=== PATIENT | female | born 1945 | race Caucasian/White ===

== ENCOUNTER 2022-12-26 11:34 | Outpatient (REF) | payer MEDICARE, OTHER, SELFPAY | END 2022-12-26 11:35 | disposition home or self-care (01) | LOC: LBN 11:34 | PROVIDERS: Visit Provider Nurse Practitioner Family | DX: N39.0 Urinary tract infection, site not specified (principal) | CPT/HCPCS: 87077; 87086; 87186 ==

== ENCOUNTER 2023-11-20 18:26 | Emergency (ER) | payer MEDICARE, OTHER, SELFPAY ==
[2023-11-20] VITALS (28 sets, daily range): BP systolic 133–178; BP diastolic 50–73; PULSE 52–78; RESP 11–21; O2SAT 95–99
--- NOTE | 2023-11-20 18:15 | RT.EKG_ITS ---
APPROVED REPORT Exam: Resting ECG Reason for Exam: chest pain Patient Location: E HR:75 bpm ECG Measurements Heart Rate 75 AXIS NH 158 P 8 QRSd 95 QRS 51 QT 410 T 6 QTc 457 Conclusion Sinus rhythm [address] changes
[2023-11-20 19:11] LABS: Abs Immature Grans 0.01 10^3/uL (0.0-0.06); Absolute Basophil Count 0.05 10^3/uL (0.0-0.2); Absolute Eosinophil Count 0.15 10^3/uL (0.0-0.7); Absolute Lymphocyte Count 2.96 10^3/uL (1.2-3.4); Absolute Monocyte Count 0.75 10^3/uL (0.1-0.8); Absolute Neutrophil Count 5.06 10^3/uL (1.2-6.7); Basophils % 0.6 %; Eosinophils % 1.7 %; HCT 46.8 % (36.0-46.0); HGB 15.4 g/dL (11.2-15.7); Immature Grans % 0.1 %; MCH 29.6 pg (27.0-33.0); MCHC 32.9 % (32.0-36.0); MCV 90 fL (80-95); MPV 9.9 fL (8.0-11.0); Monocytes % 8.4 %; Neutrophils % 56.2 %; Platelet Count 271 10^3/uL (130-400); RBC 5.21 10^6/uL (3.93-5.22); RDW 12.9 % (11.7-14.6); RDW-SD 42.5 fL; WBC 8.98 10^3/uL (4.4-10.8)
[2023-11-20] MEDS: Aspirin 81 MG CHEW 324 MG CH (19:12)
--- NOTE | 2023-11-20 19:45 | DI.RAD_ITS ---
Exam(s) XR PORTABLE CHEST AP EXAM: XR PORTABLE CHEST AP CLINICAL HISTORY: cp TECHNIQUE: 2D digital imaging was performed of the chest. One image was obtained. An AP view was ob tained. COMPARISON: No exams were available for comparison FINDINGS: MEDIASTINUM: Normal. HEART: Normal. PULMONARY VASCULATURE: Normal. LUNGS: No focal consolidating infiltrates. The lungs are hyperinflated suggesting underlying COPD. PLEURAL SPACE: No pleural effusion or pneumothorax. BONE:Within normal limits for the patient's age. There is a mild right convex lower thoracic upper shanice mbar scoliosis. OTHER FINDINGS:Normal. IMPRESSION: No acute pulmonary findings. DATA REPOSITORY: RADIATION DOSE DELIVERED:
[2023-11-20 20:14] LABS: ALT 30 U/L (14-59); AST 30 U/L (15-37); Alkaline Phosphatase 100 U/L (46-116); Anion Gap 7.3 mmol/L (3-11); BUN 16 mg/dL (7-18); Bilirubin, Total 0.5 mg/dL (0.2-1.0); CO2 28.7 mmol/L (21.0-32.0); CREATININE 0.7 mg/dL (0.55-1.02); Chloride 104 mmol/L (98-107); Estimated GFR 89.58 (mL/min/1.73m2); Glucose 94 mg/dL (74-106); Magnesium 2.5 mg/dL (1.8-2.4); NT-proBNP 345 pg/mL (<300); Potassium 4.8 mmol/L (3.5-5.1); Sodium 140 mmol/L (136-145); Total Protein 7.9 g/dL (6.4-8.2); Troponin I < 50 ng/L (< or =60)
--- NOTE | 2023-11-20 20:16 | DI.VRAD_ITS ---
PROCEDURE INFORMATION: Exam: XR Chest Exam date and time: 11/20/2023 7:42 PM Age: 77 years old Clinical indication: Other: Chest pain TECHNIQUE: Imaging protocol: Radiologic exam of the chest. Views: 1 view. COMPARISON: No relevant prior studies available. FINDINGS: Lungs: Lungs hyperinflated suggestive of COPD. No consolidation. Pleural spaces: Unremarkable. No pleural effusion. No pneumothorax. Heart/Mediastinum: Unremarkable. No cardiomegaly. Bones/joints: Unremarkable. IMPRESSION: No acute abnormality. Dictated and Authenticated by: Andrew Iniguez MD. Ordering:[facility] Juan Mandujano MD
[2023-11-20 22:08] LABS: Troponin I < 50 ng/L (< or =60)
--- NOTE | 2023-11-20 22:27 | ED.GENADUL_ITS ---
Discharge Plan Disposition Patient Disposition: Home Condition: Stable Discharge Details Clinical Impression: Chest pain Primary Care Provider: Unknown,Unknown ED Provider: Shyann Martinez Discharge Instructions Instructions: Chest Pain (ED) Additional Instructions: lab work is stable unlikely heart attack causing pain please follow up with PCP for re-evaluation or return to the ED with persistent chest pain HPI General Date/Time Provider Initiated Documentation: 11/20/23 18:42 . Limitations to Documentation: no limitations . Information obtained by: patient and family . HPI Narrative: 77-year-old female with out significant past medical history presents for evaluation of left-sided chest pain. She reports the onset of symptoms while driving in a car. They have been driving for approximately 5 hours. She has no associated shortness of breath. She reports left-sided sharp nonradiating pain. She reports that she has had about 6 episodes of this pain. No exacerbating or relieving factors. Pain is brief when she does feel it and resolved spont aneously. She has never had symptoms like this before. General Stated Complaint: Chest Pain MECHE: 3 Exam Narrative Exam Narrative: Review of Systems: All systems reviewed & are unremarkable except as noted in HPI and below Well-developed, no acute distress NCAT PERRL, normal conjunctiva RRR, no murmur, no chest wall tenderness Blood pressure slightly elevated Unlabored respiratory effort, clear bilaterally Nondistended abdomen, nontender Extremities w/o deformity, no cyanosis, no edema No rashes or lesions. no focal neurologic deficits Appropriate mood and affect Course Vital Signs Vital signs: Vital Signs Pulse 78 11/20/23 18:29 Respiratory Rate 18 11/20/23 18:29 Blood Pressure 178/73 H 11/20/23 18:29 Pulse Oximetry 97 11/20/23 18:29 Pulse 60 11/20/23 20:40 Pulse 63 11/20/23 20:40 Respiratory Rate 18 11/20/23 20:40 Respiratory Effort Normal 11/20/23 18:51 Respiratory Depth Normal 11/20/23 18:50 Respiratory Pattern Normal 11/20/23 18:50 Blood Pressure 166/66 H 11/20/23 20:40 Blood Pressure Mean 104 11/20/23 20:40 Blood Pressure Position Sitting 11/20/23 18:29 Pulse Oximetry 98 11/20/23 20:40 Oxygen Delivery Method Room Air 11/20/23 18:29 Oxygen Flow Rate 0 11/20/23 18:29 Lab/Test Results Lab/Test Results: Laboratory Tests Range/Units 11/20/23 11/20/23 11/20/23 18:44 19:46 21:45 WBC (4.4-10.8) 10^3/uL 8.98 RBC (3.93-5.22) 10^6/uL 5.21 Hgb (11.2-15.7) g/dL 15.4 Hct (36.0-46.0) % 46.8 H MCV (80-95) fL 90 MCH (27.0-33.0) pg 29.6 MCHC (32.0-36.0) % 32.9 RDW (11.7-14.6) % 12.9 Plt Count (130-400) 10^3/uL 271 MPV (8.0-11.0) fL 9.9 Immature Gran % % 0.1 Neutrophils % % 56.2 Lymphocytes % % 33.0 Monocytes % % 8.4 Eosinophils % % 1.7 Basophils % % 0.6 Nucleated RBC % (0.0-0.3) % 0.0 Absolute Neutrophils (1.2-6.7) 10^3/uL 5.06 Absolute Lymphocytes (1.2-3.4) 10^3/uL 2.96 Absolute Monocytes (0.1-0.8) 10^3/uL 0.75 Absolute Eosinophils (0.0-0.7) 10^3/uL 0.15 Absolute Basophils (0.0-0.2) 10^3/uL 0.05 Sodium Cancelled 140 Potassium Cancelled 4.8 Chloride Cancelled 104 Carbon Dioxide Cancelled 28.7 Anion Gap Cancelled 7.3 BUN Cancelled 16 Creatinine Cancelled 0.7 Est GFR (CKD-EPI 2020) Cancelled 89.58 Glucose Cancelled 94 Calcium Cancelled 9.0 Magnesium Cancelled 2.5 H Total Bilirubin Cancelled 0.5 AST Cancelled 30 ALT Cancelled 30 Alkaline Phosphatase Cancelled 100 Troponin I Cancelled < 50 < 50 NT-Pro-B Natriuret Pep Cancelled 345 H Total Protein Cancelled 7.9 Albumin Cancelled 4.0 Medical Decision Making 77-year-old female without significant past medical history presents with acute on exertional chest pain. Last episode of the pain was at 6:30 PM. Pain was very brief. Symptoms are not highly suspicious for cardiac etiology of pain and she does not have significant risk factors for ACS. She is chest pain-free and asymptomatic at this time. Plan for serial troponins, cardiac monitoring. Will give a full dose aspirin and reassess. Lab work has been reviewed and independently interpreted. No leukocytosis or significant anemia. No electrolyte derangement. Magnesium slightly at the upper limit of normal. Her BNP is 345, but her chest x-ray is unremarkable and she has no signs of volume overload or cardiomegaly. Her troponin has been checked twice and is negative. Second troponin is greater than 3 hours after that her last episode of symptoms. Her acute EKG is not acutely ischemic. At this time given her heart score and clinical status, the patient is stable for discharge home. Her blood pressure has normalized. I do recommend that she continue to monitor this and if she continues to have elevated blood pressure she should follow-up with her PCP for reevaluation and medication initiation. Otherwise the patient is discharged in good condition. Strict return precautions discussed with her. Medical Records Medical records reviewed: Yes I reviewed the patient's medical records. Lab Data Lab results reviewed: Yes I reviewed the patient's lab results. Quality:SDOH Health Related Social Needs: No Data to Display PFSH All Active Problems Chest pain (Acute) Social History Smoking/Tobacco Use Status: Never Smoking risk assessment performed?: Yes Alcohol Intake: never Drug use: Never Substance use type: does not use Do you feel safe at home: Yes Do you feel safe in your relationship?: Yes
== END 2023-11-20 22:30 | disposition home or self-care (01) ==
PROVIDERS: Emergency Provider Emergency Medicine
DX: R07.9 Chest pain, unspecified (principal)
CPT/HCPCS: 36415; 80053; 93005; 99285; 71045; 83735; 83880; 84484; 85025; 93010; 99284